=== PATIENT | female | born 1995 | race African-American/Black ===

== ENCOUNTER → 2018-11-13 | Outpatient (CLI) | payer OTHER ==
[2018-11-13 16:56] LABS: BACTERIA (WET MOUNT) 4+ BACTERIA SEEN; EPITHELIALS (WET MOUNT) 4+ EPITHELIALS SEEN; T.VAGINALIS (WET MOUNT) NO TRICHOMONAS SEEN; WBCS (WET MOUNT) RARE WBCS SEEN; YEAST (WET MOUNT) NO YEAST SEEN
[2018-11-13 19:06] LABS: CHLAM PCR DETECTED (NOT DETECT); GON PCR NOT DETECTED (NOT DETECT)
== END ==
LOC: LAB 16:28
PROVIDERS: ATTEND Nurse Practitioner Family
DX: R30.0 Dysuria (principal)
CPT/HCPCS: 87086; 87210; 87491; 87591

== ENCOUNTER 2019-01-03 17:08 | Emergency (ER) | payer OTHER ==
[2019-01-03] MEDS ORDERED: ACETAMINOPHEN 325 MG TABLET PO ONE (17:23)
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
[2019-01-03 18:53] LABS: ABSOLUTE BASOPHILS # (AUTO) 0.1 10^3/uL (0.0-0.2); ABSOLUTE EOSINOPHILS # (AUTO) 0.6 10^3/uL (0.0-0.6); ABSOLUTE LYMPHOCYTES (AUTO) 2.7 10^3/uL (0.5-4.7); ABSOLUTE MONOCYTES (AUTO) 0.3 10^3/uL (0.1-1.4); ABSOLUTE NEUT (AUTO) 4.4 10^3/uL (1.7-8.2); BASOPHILS % (AUTO) 1.1 % (0-2); HEMATOCRIT 39.8 % (36.0-47.0); HEMOGLOBIN 13.4 g/dL (12.0-15.5); LYMPHOCYTES % (AUTO) 33.8 % (13-45); MEAN CORPUSCULAR HEMOGLOBIN 30.6 pg (27.0-33.4); MEAN CORPUSCULAR HGB CONC 33.7 g/dL (32.0-36.0); MEAN CORPUSCULAR VOLUME 91 fl (80-97); MONOCYTES % (AUTO) 3.7 % (3-13); PLATELET COUNT 242 10^3/uL (150-450); RED BLOOD COUNT 4.39 10^6/uL (3.72-5.28); SEGMENTED NEUTROPHILS % (AUTO) 54.4 % (42-78); TOTAL CELLS COUNTED % (AUTO) 100 %; WHITE BLOOD COUNT 8.1 10^3/uL (4.0-10.5)
[2019-01-03 19:09] LABS: ALANINE AMINOTRANSFERASE 25 U/L (9-52); ALBUMIN 4.1 g/dL (3.5-5.0); ALKALINE PHOSPHATASE 76 U/L (38-126); ANION GAP 10 (5-19); ASPARTATE AMINO TRANSFERASE 19 U/L (14-36); BILIRUBIN,DIRECT 0.2 mg/dL (0.0-0.4); BILIRUBIN,TOTAL 0.5 mg/dL (0.2-1.3); BLOOD UREA NITROGEN 15 mg/dL (7-20); CALCIUM 9.8 mg/dL (8.4-10.2); CARBON DIOXIDE 26 mmol/L (22-30); CHLORIDE 107 mmol/L (98-107); GLUCOSE 89 mg/dL (75-110); POTASSIUM 3.7 mmol/L (3.6-5.0); SODIUM 142.7 mmol/L (137-145); TOTAL PROTEIN 7.1 g/dL (6.3-8.2)
[2019-01-03 20:28] VITALS: BP 122/64
--- NOTE | 2019-01-03 23:49 | EKG REPORT ---
SEVERITY:- NORMAL ECG - SINUS RHYTHM : Confirmed by: Lindy Conde MD 03-Jan-2019 23:49:26
== END 2019-01-03 20:28 | disposition home or self-care (01) ==
LOC: ER 17:08
DX: M79.602 Pain in left arm (principal); M89.8X1 Other specified disorders of bone, shoulder; M54.2 Cervicalgia; M79.605 Pain in left leg; V49.40XA Driver injured in collision with unspecified motor vehicles in traffic accident, initial encounter; V47.5XXA Car driver injured in collision with fixed or stationary object in traffic accident, initial encounter; Y93.84 Activity, sleeping; L53.9 Erythematous condition, unspecified
CPT/HCPCS: 36415; 71046; 80053; 85025; 93005; 93010; 99284

== ENCOUNTER 2019-05-06 06:45 | Emergency (ER) | payer BC, OTHER ==
[2019-05-06 08:55] LABS: ABSOLUTE EOSINOPHILS # (AUTO) 0.4 10^3/uL (0.0-0.6); ABSOLUTE MONOCYTES (AUTO) 0.3 10^3/uL (0.1-1.4); ABSOLUTE NEUT (AUTO) 5.8 10^3/uL (1.7-8.2); BASOPHILS % (AUTO) 0.4 % (0-2); EOSINOPHILS % (AUTO) 4.1 % (0-6); HEMATOCRIT 39.1 % (36.0-47.0); HEMOGLOBIN 13.2 g/dL (12.0-15.5); LYMPHOCYTES % (AUTO) 23.8 % (13-45); MEAN CORPUSCULAR HEMOGLOBIN 30.3 pg (27.0-33.4); MEAN CORPUSCULAR HGB CONC 33.8 g/dL (32.0-36.0); MEAN CORPUSCULAR VOLUME 90 fl (80-97); PLATELET COUNT 225 10^3/uL (150-450); RED BLOOD COUNT 4.36 10^6/uL (3.72-5.28); RED CELL DISTRIBUTION WIDTH 12.9 % (11.5-14.0); SEGMENTED NEUTROPHILS % (AUTO) 67.7 % (42-78); TOTAL CELLS COUNTED % (AUTO) 100 %; WHITE BLOOD COUNT 8.6 10^3/uL (4.0-10.5)
[2019-05-06 09:11] LABS: ANION GAP 11 (5-19); BLOOD UREA NITROGEN 10 mg/dL (7-20); CALCIUM 9.6 mg/dL (8.4-10.2); CARBON DIOXIDE 23 mmol/L (22-30); CHLORIDE 106 mmol/L (98-107); GLUCOSE 87 mg/dL (75-110); POTASSIUM 3.8 mmol/L (3.6-5.0)
[2019-05-06 09:43] LABS: APPEARANCE,URINE SLIGHTLY-CLOUDY; BILIRUBIN,URINE NEGATIVE (NEGATIVE); COLOR,URINE YELLOW; GLUCOSE, URINE NEGATIVE (NEGATIVE); KETONES,URINE NEGATIVE (NEGATIVE); LEUKOCYTE ESTERASE,URINE NEGATIVE (NEGATIVE); NITRITE,URINE NEGATIVE (NEGATIVE); PROTEIN,URINE NEGATIVE (NEGATIVE); URINE SPECIFIC GRAVITY 1.023; UROBILINOGEN,URINE NEGATIVE mg/dL (<2.0)
[2019-05-06 10:04] LABS: ADD MANUAL MICROSCOPIC YES
[2019-05-06 10:19] LABS: BACTERIA,URINE 1+ /HPF
[2019-05-06 10:20] LABS: RBC,URINE 0-1 /HPF
--- NOTE | 2019-05-06 10:41 | RADIOLOGY REPORT (SQ) ---
EXAM DESCRIPTION: U/S OB TRANSVAG W/DOPPLER COMPLETED DATE/TIME: 05/06/2019 10:31 am REASON FOR STUDY: + preg/bleeding COMPARISON: None. TECHNIQUE: Transvaginal static and realtime grayscale images acquired of the pelvis. Additional cody cted spectral and color Doppler images recorded. All images stored on PACs. CLINICAL AGE: 4 weeks, 4 days BHCG: Positive qualitative, no quantitative value available LIMITATIONS: None. FINDINGS: UTERUS: No visualized intrauterine . RIGHT ADNEXA: Normal ovary with normal vascular flow. No adnexal free fluid. No adnexal masses. LEFT ADNEXA: Normal ovary with normal vascular flow. Multiple small cysts. No adnexal free fluid. No adnexal masses. FREE FLUID: None. OTHER: No other significant finding. IMPRESSION: No candidate intrauterine identified. Early of unknown location. R ecommend follow-up beta HCG, ectopic precautions, and follow-up ultrasound examination in 7 to 14 day s to ensure continued development and viability. TECHNICAL DOCUMENTATION: JOB ID: [id number] [employer]- All Rights Reserved Reading location - IP/workstation name: [email or web address]
--- NOTE | 2019-05-06 12:52 | ER Document Report ---
ED General - General Chief Complaint: Vaginal Bleeding Stated Complaint: ABDOMINAL PAIN Time Seen by Provider: 05/06/19 08:48 Notes: Patient is a 24-year-old female G2, P1 maximally 4 weeks presents to the emergency department for vaginal bleeding. Patient states last night she started with some light dark red vaginal bleeding. States she went through one pad. States she did have abdominal cramping last evening but that has since stopped. States today she presents to the emergency department for this complaint. Patient's denying any fevers, vaginal discharge, dysuria, abdominal pain or cramping. Past medical history: None Medications: None Allergies: None Last menstrual period 04/05/2019 TRAVEL OUTSIDE OF THE [place] IN LAST 30 DAYS: No - Related Data Allergies/Adverse Reactions: No Known Allergies Allergy (Verified 05/06/19 06:53) Past Medical History - General Information source: Patient - Social History Smoking Status: Never Smoker Chew tobacco use (# tins/day): No Frequency of alcohol use: None Drug Abuse: None Family History: Reviewed & Not Pertinent Patient has suicidal ideation: No Patient has homicidal ideation: No Pulmonary Medical History: Reports: Hx Bronchitis Endocrine Medical History: Denies: Hx Diabetes Mellitus Type 2 Renal/ Medical History: Denies: Hx Ectopic , Hx Ovarian Cysts, Hx Pe ritoneal Dialysis, Hx Pelvic Inflammatory Disease Review of Systems - Review of Systems Constitutional: denies: Fever EENT: No symptoms reported Cardiovascular: No symptoms reported Respiratory: No symptoms reported Gastrointestinal: See HPI Genitourinary: See HPI Female Genitourinary: See HPI Musculoskeletal: No symptoms reported Skin: No symptoms reported Hematologic/Lymphatic: No symptoms reported Neurological/Psychological: No symptoms reported Physical Exam - Vital signs Vitals: Temp Pulse Resp BP Pulse Ox 98.6 F 77 16 130/78 H 100 05/06/19 06:53 05/06/19 06:53 05/06/19 06:53 05/06/19 06:53 05/06/19 06:53 - Notes Notes: GENERAL: Alert, interacts well. No acute distress. HEAD: Normocephalic, atraumatic. EYES: Pupils equal, round, and reactive to light. Extraocular movements intact. ENT: Oral mucosa moist, tongue midline. NECK: Full range of motion. Supple. Trachea midline. LUNGS: Clear to auscultation bilaterally, no wheezes, rales, or rhonchi. No respiratory distress. HEART: Regular rate and rhythm. No murmur ABDOMEN: Soft, non-tender. Non-distended. Bowel sounds present in all 4 quadrants. No pelvic pain noted bilaterally. EXTREMITIES: Moves all 4 extremities spontaneously. No edema, normal radial and dorsalis pedis pulses bilaterally. No cyanosis. BACK: no cervical, thoracic, lumbar midline tenderness. No saddle anesthesia, normal distal neurovascular exam. NEUROLOGICAL: Alert and oriented x3. Normal speech. cranial nerves II through XII grossly intact. PSYCH: Normal affect, normal mood. SKIN: Warm, dry, normal turgor. No rashes or lesions noted. Course - Re-evaluation Re-evalutation: 05/06/19 12:49 I have discussed with patient ultrasound and hCG results. Initially patient was denying any vaginal discharge, besides the scant bleeding that started last evening. Patient now states she was treated for bacterial vaginosis approximately a month ago. States she did not finish her medications and "now that I think about it, it does smell down there." Patient is denying any abdominal pain or cramping at this time. She is denying any pelvic pain, upon reexamination she does not have any pain. I discussed use of a pelvic or doing self swabs. Patient wishes to refuse pelvic at this time. States she will do self swabs. 05/06/19 13:25 Laboratory 05/06/19 05/06/19 05/06/19 08:37 08:37 08:37 WBC 8.6 RBC 4.36 Hgb 13.2 Hct 39.1 MCV 90 MCH 30.3 MCHC 33.8 RDW 12.9 Plt Count 225 Lymph % (Auto) 23.8 [place] % (Auto) 4.0 Eos % (Auto) 4.1 Baso % (Auto) 0.4 Absolute Neuts (auto) 5.8 Absolute Lymphs (auto) 2.0 Absolute Monos (auto) 0.3 Absolute Eos (auto) 0.4 Absolute Basos (auto) 0.0 Seg Neutrophils % 67.7 Sodium 139.9 Potassium 3.8 Chloride 106 Carbon Dioxide 23 Anion Gap 11 BUN 10 Creatinine 0.72 Est GFR ( Amer) > 60 Est GFR (MDRD) Non-Af > 60 Glucose 87 Calcium 9.6 Serum HCG, Qual Beta HCG, Quant Total Beta HCG Urine Color Urine Appearance Urine pH Ur Specific [place] Urine Protein Urine Glucose (UA) Urine Ketones Urine Blood Urine Nitrite Urine Bilirubin Urine Urobilinogen Ur Leukocyte Esterase Urine RBC Urine WBC Ur Squamous Epith Cells Urine Bacteria Urine Mucus Urine Ascorbic Acid Epi Cells (Wet Prep) Bacteria (Wet Prep) Trichomonas (Wet Prep) Vaginal WBC Vaginal Yeast Blood Type B POSITIVE Rhogam Indicated RHOGAM NOT INDICATED 05/06/19 05/06/19 05/06/19 08:37 08:37 09:05 WBC RBC Hgb Hct MCV MCH MCHC RDW Plt Count Lymph % (Auto) [place] % (Auto) Eos % (Auto) Baso % (Auto) Absolute Neuts (auto) Absolute Lymphs (auto) Absolute Monos (auto) Absolute Eos (auto) Absolute Basos (auto) Seg Neutrophils % Sodium Potassium Chloride Carbon Dioxide Anion Gap BUN Creatinine Est GFR ( Amer) Est GFR (MDRD) Non-Af Glucose Calcium Serum HCG, Qual POSITIVE H Beta HCG, Quant 248.20 H Total Beta HCG POSITIVE Urine Color YELLOW Urine Appearance SLIGHTLY-CLOUDY Urine pH 5.0 Ur Specific [place] 1.023 Urine Protein NEGATIVE Urine Glucose (UA) NEGATIVE Urine Ketones NEGATIVE Urine Blood NEGATIVE Urine Nitrite NEGATIVE Urine Bilirubin NEGATIVE Urine Urobilinogen NEGATIVE Ur Leukocyte Esterase NEGATIVE Urine RBC 0-1 Urine WBC 1-5 Ur Squamous Epith Cells FEW Urine Bacteria 1+ Urine Mucus 2+ Urine Ascorbic Acid NEGATIVE Epi Cells (Wet Prep) Bacteria (Wet Prep) Trichomonas (Wet Prep) Vaginal WBC Vaginal Yeast Blood Type Rhogam Indicated 05/06/19 12:51 WBC RBC Hgb Hct MCV MCH MCHC RDW Plt Count Lymph % (Auto) [place] % (Auto) Eos % (Auto) Baso % (Auto) Absolute Neuts (auto) Absolute Lymphs (auto) Absolute Monos (auto) Absolute Eos (auto) Absolute Basos (auto) Seg Neutrophils % Sodium Potassium Chloride Carbon Dioxide Anion Gap BUN Creatinine Est GFR ( Amer) Est GFR (MDRD) Non-Af Glucose Calcium Serum HCG, Qual Beta HCG, Quant Total Beta HCG Urine Color Urine Appearance Urine pH Ur Specific [place] Urine Protein Urine Glucose (UA) Urine Ketones Urine Blood Urine Nitrite Urine Bilirubin Urine Urobilinogen Ur Leukocyte Esterase Urine RBC Urine WBC Ur Squamous Epith Cells Urine Bacteria Urine Mucus Urine Ascorbic Acid Epi Cells (Wet Prep) 3+ EPITHELIALS SEEN Bacteria (Wet Prep) 3+ BACTERIA SEEN Trichomonas (Wet Prep) NO TRICHOMONAS SEEN Vaginal WBC 1+ WBCS SEEN Vaginal Yeast NO YEAST SEEN Blood Type Rhogam Indicated Transvaginal US 05/06/19 08:50 IMPRESSION: No candidate intrauterine identified. Early of unknown location. Recommend follow-up beta HCG, ectopic precautions, and follow-up ultrasound examination in 7 to 14 days to ensure continued development and viability. Patient's beta-hCG was 248, patient's ultrasound shows no IUP. Suggest repeat hCGs and repeat ultrasounds. Patient's wet mount did show signs of bacterial vaginosis, treated prophylactically for gonorrhea and chlamydia. Patient continues without having abdominal pain or cramping in the emergency room. States she has had the same pad in place that she put on this morning and there is no blood that she can see. Discussed with her close follow-up with [facility] or the [facility]. Discussed potential early or threatened miscarriage. At this time will discharge with return precautions and follow-up recommendations. Verbal discharge instructions given a the bedside and opportunity for questions given. Medication warnings reviewed. Patient is in agreement with this plan and has verbalized understanding of return precautions and the need for primary care follow-up in the next 24-72 hours. This medical record was dictated with voice recognizing software. There may be grammatical, syntax errors that are unintended. - Vital Signs Vital signs: Temp Pulse Resp BP Pulse Ox 98.6 F 77 16 130/78 H 100 05/06/19 06:53 05/06/19 06:53 05/06/19 06:53 05/06/19 06:53 05/06/19 06:53 - Laboratory Result Diagrams: 05/06/19 08:37 05/06/19 08:37 Laboratory results interpreted by me: 05/06/19 05/06/19 08:37 08:37 Serum HCG, Qual POSITIVE H Beta HCG, Quant 248.20 H Discharge - Discharge Clinical Impression: Vaginal bleeding affecting early , Bacterial vaginosis in Condition: Stable Disposition: HOME, SELF-CARE Instructions: Vaginal Bleeding ([facility]), Vaginosis, Bacterial ([facility]), Bleeding During Early ([facility]) Additional Instructions: As we discussed you have been seen and treated in the emergency department for bleeding during early . You should have your labs rechecked in 48 hours. Please follow-up with [facility] or the [facility], phone numbers will be provided. You have also tested positive for bacterial vaginosis, take antibiotics as prescribed. You have been prophylactically treated for gonorrhea and chlamydia. Please return to the emergency room should you have excessive vaginal bleeding, feel lightheaded, dizzy, weak, pass out or have any other concerns. Prescriptions: Metronidazole [Flagyl 500 mg Tablet] 500 mg PO BID #14 tablet Referrals: EFREN REBOLLEDO MD [ACTIVE STAFF] - Follow up as needed [facility] - Follow up as needed
[2019-05-06 13:14] LABS: BACTERIA (WET MOUNT) 3+ BACTERIA SEEN; EPITHELIALS (WET MOUNT) 3+ EPITHELIALS SEEN; T.VAGINALIS (WET MOUNT) NO TRICHOMONAS SEEN; WBCS (WET MOUNT) 1+ WBCS SEEN; YEAST (WET MOUNT) NO YEAST SEEN
[2019-05-06] MEDS ORDERED: CEFTRIAXONE INJ 250 MG VIAL IM ONE (13:15)
[2019-05-06] MEDS ORDERED: METRONIDAZOLE 500 MG TABLET PO ONE (13:15)
[2019-05-06] MEDS ORDERED: AZITHROMYCIN 250 MG TABLET PO ONE (13:16)
[2019-05-06 13:42] VITALS: BP 126/74
[2019-05-06 14:37] LABS: CHLAM PCR NOT DETECTED (NOT DETECT)
== END 2019-05-06 13:42 | disposition home or self-care (01) ==
LOC: ER 06:45
DX: O20.9 Hemorrhage in early pregnancy, unspecified (principal); O23.591 Infection of other part of genital tract in pregnancy, first trimester; B96.89 Other specified bacterial agents as the cause of diseases classified elsewhere; Z3A.01 Less than 8 weeks gestation of pregnancy
CPT/HCPCS: 86900; 86901; 36415; 87210; 84702; 84703; 85025; 80048; 81001; 87491; 87591; 76817; 93976; J0696

== ENCOUNTER 2019-06-20 17:14 | Emergency (ER) | payer BC, OTHER ==
--- NOTE | 2019-06-20 17:24 | ER Document Report ---
ED Medical Screen (RME) - General Chief Complaint: Vaginal Bleeding Stated Complaint: VAGINAL BLEEDING Time Seen by Provider: 06/20/19 17:17 Mode of Arrival: Ambulatory Information source: Patient Notes: Patient states that she was about 8 weeks and had an performed on 05/29/19. Patient states she is only followed up with the doctor via phone. Patient states she has had increased pain, vaginal bleeding with clots. Patient states she did take a home test that was positive today. Patient states that she has been sexually active since having the although states that it could not have gotten her and is vague regarding whether or not she has been sexually active. Patient's blood type is B+ from review of previous records. I have greeted and performed a rapid initial assessment of this patient. A comprehensive ED assessment and evaluation of the patient, analysis of test results and completion of the medical decision making process will be conducted by additional ED providers. TRAVEL OUTSIDE OF THE [place] IN LAST 30 DAYS: No - Related Data Allergies/Adverse Reactions: No Known Allergies Allergy (Verified 06/20/19 17:17) Past Medical History Pulmonary Medical History: Reports: Hx Bronchitis Endocrine Medical History: Denies: Hx Diabetes Mellitus Type 2 Renal/ Medical History: Denies: Hx Ectopic , Hx Ovarian Cysts, Hx Peritoneal Dialysis, Hx Pelvic Inflammatory Disease Physical Exam - General General appearance: Appears well, Alert In distress: None
[2019-06-20 17:47] LABS: ABSOLUTE EOSINOPHILS # (AUTO) 0.6 10^3/uL (0.0-0.6); ABSOLUTE LYMPHOCYTES (AUTO) 2.3 10^3/uL (0.5-4.7); ABSOLUTE MONOCYTES (AUTO) 0.3 10^3/uL (0.1-1.4); ABSOLUTE NEUT (AUTO) 4.7 10^3/uL (1.7-8.2); BASOPHILS % (AUTO) 0.6 % (0-2); EOSINOPHILS % (AUTO) 7.3 % (0-6); HEMATOCRIT 35.6 % (36.0-47.0); HEMOGLOBIN 12.1 g/dL (12.0-15.5); LYMPHOCYTES % (AUTO) 29.2 % (13-45); MEAN CORPUSCULAR HEMOGLOBIN 30.4 pg (27.0-33.4); MEAN CORPUSCULAR VOLUME 90 fl (80-97); MONOCYTES % (AUTO) 4.1 % (3-13); PLATELET COUNT 285 10^3/uL (150-450); RED BLOOD COUNT 3.98 10^6/uL (3.72-5.28); RED CELL DISTRIBUTION WIDTH 12.7 % (11.5-14.0); SEGMENTED NEUTROPHILS % (AUTO) 58.8 % (42-78); TOTAL CELLS COUNTED % (AUTO) 100 %
--- NOTE | 2019-06-20 18:43 | ER Document Report ---
ED GI/ - General Chief Complaint: Vaginal Bleeding Stated Complaint: VAGINAL BLEEDING Time Seen by Provider: 06/20/19 17:17 Mode of Arrival: Ambulatory Information source: Patient Notes: HPI: Patient is a 24-year-old female who had a Cytotec assisted miscarriage on 29 May. She states that the bleeding subsided until about a week ago. She states she has been passing small clots with some intermittent cramping. She denies any fevers, vomiting, lightheadedness or dizziness, or dysuria. Patient was concerned because she took a home test that was "positive". She is still sexually active. ROS: See HPI All other review of systems reviewed and otherwise negative Reviewed vital signs and nursing note as charted by RN. PHYSICAL EXAM: CONSTITUTIONAL: Alert and oriented and responds appropriately to questions. Well-appearing; well-nourished HEAD: Normocephalic; atraumatic CARD: Regular rate and rhythm; no murmurs; symmetric distal pulses RESP: Normal chest excursion without splinting or tachypnea; breath sounds clear and equal bilaterally ABD/GI: Normal bowel sounds; non-distended; soft, non-tender to palpation of all four quadrants of the abdomen. No palpable fundus. 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 I do not see any obvious external lesions. Very minimal blood in the vaginal vault. Cervical os is closed with no CMT or adnexal masses or tenderness BACK: The back appears normal and is non-tender to palpation EXT: Normal ROM in all joints; non-tender to palpation; no edema SKIN: No acute lesions noted NEURO: CN 2-12 intact; 5/5 bilateral upper and lower extremity strength with sensation intact to light touch PSYCH: The patient's mood and manner are appropriate. Grooming and personal hygiene are appropriate. TRAVEL OUTSIDE OF THE [place] IN LAST 30 DAYS: No - Related Data Allergies/Adverse Reactions: No Known Allergies Allergy (Verified 06/20/19 17:17) Past Medical History - General Information source: Patient - Social History Smoking Status: Never Smoker Family History: Reviewed & Not Pertinent Patient has suicidal ideation: No Patient has homicidal ideation: No Pulmonary Medical History: Reports: Hx Bronchitis Endocrine Medical History: Denies: Hx Diabetes Mellitus Type 2 Renal/ Medical History: Denies: Hx Ectopic , Hx Ovarian Cysts, Hx Peritoneal Dialysis, Hx Pelvic Inflammatory Disease Physical Exam - Vital signs Vitals: Temp Pulse Resp BP Pulse Ox 98.0 F 72 16 115/79 100 06/20/19 17:22 06/20/19 17:22 06/20/19 17:22 06/20/19 17:22 06/20/19 17:22 Course - Re-evaluation Re-evalutation: Given the history and physical we will obtain a hemoglobin level, repeat quantitative hCG, transvaginal ultrasound, pelvic exam, and reassess. Vital signs are stable. 06/20/19 18:42 Exam as recorded. Patient tells me she was mostly concerned about the positive test. I do believe this could have been falling quantitative hCGs especially given the level today. Transvaginal ultrasound is pending. 06/20/19 18:44 Patient had a quantitative hCG of 248 on May 13 of this year. Again the Cytotec induced miscarriage/evacuation of products was on the 29 of May. 06/20/19 18:57 Ultrasound as recorded. I called and spoke directly to the radiologist. I also called and spoke directly to the PEN RULER OPERATOR. She would be admitted for further evaluation and possibly a D&C. - Vital Signs Vital signs: Temp Pulse Resp BP Pulse Ox 98.0 F 72 16 115/79 100 06/20/19 17:22 06/20/19 17:22 06/20/19 17:22 06/20/19 17:22 06/20/19 17:22 - Laboratory Result Diagrams: 06/20/19 17:34 Laboratory results interpreted by me: 06/20/19 06/20/19 17:34 17:34 Hct 35.6 L Eos % (Auto) 7.3 H Beta HCG, Quant 1786.10 H Discharge - Discharge Clinical Impression: Retained products of conception Condition: Fair Disposition: ADMITTED OBSERVATION Admitting Provider: [facility] Unit Admitted: Labor and Delivery
[2019-06-20 18:53] LABS: BACTERIA (WET MOUNT) 3+ BACTERIA SEEN; RBCS (WET MOUNT) 3+ RBCS SEEN; T.VAGINALIS (WET MOUNT) NO TRICHOMONAS SEEN; WBCS (WET MOUNT) 2+ WBCS SEEN; YEAST (WET MOUNT) NO YEAST SEEN
--- NOTE | 2019-06-20 19:20 | RADIOLOGY REPORT (SQ) ---
EXAM DESCRIPTION: U/S OB TRANSVAGINAL W/O DOP COMPLETED DATE/TIME: 06/20/2019 6:05 pm REASON FOR STUDY: 05/29, vag bleed, pain,+preg test per pt COMPARISON: None. TECHNIQUE: Dynamic and static grayscale images acquired of the pelvis via transvaginal approach and recorded on PACS. Additional selected color Doppler and spectral images recorded. LIMITATIONS: None. FINDINGS: UTERUS: The uterus measures 9.6 by 4.6 x 4.5 cm. ENDOMETRIAL STRIPE: The endometrium measures 14 mm in thickness with heterogeneous echoes. These shyanne nges could be secondary to retained products of conception. CERVIX: The cervix measures 2.7 cm in length. RIGHT OVARY AND DOPPLER: The right ovary measures 1.7 x 2.3 x 5.2 cm demonstrating Doppler flow LEFT OVARY AND DOPPLER: The left ovary measures 2.5 x 2.3 x 1.8 cm demonstrating Doppler flow. IMPRESSION: There is evidence of complex echoes within the endometrial canal which could represent c hanges of retained products of conception. Dyer Assistant consultation recommended. COMMENT: The case was discussed with the nurse practitioner Avel. TECHNICAL DOCUMENTATION: JOB ID: [id number] [id number] [employer]- All Rights Reserved Rev-01/09 Reading location - IP/workstation name: [email or web address]
--- NOTE | 2019-06-20 20:12 | PDOC CONSULTATION ---
Consultation Consult Date: 06/20/19 Attending physician:: NALDO AWAD Provider Consulted: RAMA SIEGEL Consult reason:: 1. Incomplete at 6 weeks (retained products of conception). 2. Rh+ History of Present Illness Admission Date/PCP: 06/20/19 19:07 Patient complains of: I have been bleeding for almost 22 days after I had a medical History of Present Illness: JENNIFER PARISH is a 24 year old 2P1 presented to the emergency department because she has been bleeding for approximately 22 days. Patient had a positive test on May 13 at the emergency department. Her LMP is April 05. She stated that she felt sick, therefore she went to the emergency department. Her quantitative beta-hCG was 200. She then decided to undergo an elective on May 29, in [place]. She was given Cytotec. She stated that she had heavy bleeding for 7 days. Two days later, the bleeding restarted. 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 Today, she states that she is bleeding very lightly, but she wanted to make sure that everything was alright, therefore she came to the ED tonight. Her quantitative beta-hCG today is 1786. She subsequently underwent a pelvic ultrasound which showed products of conception in the fundal region. Past Medical History 1 Baby 1 Year: 2,016 Delivery: Spontaneous Vaginal Delivery Pulmonary Medical History: Reports: Bronchitis Endocrine Medical History: Denies: Diabetes Mellitus Type 2 Social History Lives with: Family Smoking Status: Never Smoker Frequency of Alcohol Use: Rare Hx Recreational Drug Use: No Family History Family History: Reviewed & Not Pertinent Parental Family History Reviewed: No - N/A Children Family History Reviewed: No Sibling(s) Family History Reviewed.: No Medication/Allergy Home Medications: Fluconazole [Diflucan] 150 mg PO ONCE #4 tablet 07/18/15 Ondansetron [Zofran Odt] 8 mg PO Q8HP PRN #10 tab.rapdis 07/18/15 Metronidazole [Flagyl 500 mg Tablet] 500 mg PO Q6H #28 tablet 10/29/15 Nitrofurantoin/Nitrofuran Mac [Macrobid 100 mg Capsule] 1 tab PO BID #20 capsule 10/29/15 Pnv95/Iron Fum/Folic Acid [ Caplet] 1 each PO DAILY #30 tablet 10/29/15 Metronidazole [Flagyl 500 mg Tablet] 500 mg PO BID #14 tablet 05/06/19 Allergies/Adverse Reactions: No Known Allergies Allergy (Verified 06/20/19 17:17) Review of Systems Constitutional: PRESENT: as per HPI. ABSENT: anorexia, chills, fatigue, f ever(s), headache(s), night sweats, weakness, weight gain, weight loss, other Cardiovascular: ABSENT: as per HPI, chest pain, dyspnea on exertion, edema, orthropnea, palpitations, other Respiratory: ABSENT: as per HPI, cough, dyspnea, hemoptysis, sputum, other Physical Exam - Physical Exam Vital Signs: Temp Pulse Resp BP Pulse Ox 98.0 F 72 16 115/79 100 06/20/19 17:22 06/20/19 17:22 06/20/19 17:22 06/20/19 17:22 06/20/19 17:22 Intake & Output 06/19/19 06/20/19 06/21/19 06:59 06:59 06:59 Weight 88.5 kg General appearance: PRESENT: no acute distress Respiratory exam: PRESENT: clear to auscultation yobany Cardiovascular exam: PRESENT: RRR GI/Abdominal exam: PRESENT: normal bowel sounds, soft Extremities exam: ABSENT: calf tenderness, clubbing, full ROM, joint swelling, pedal edema, tenderness, +1 edema, +2 edema, other - Gynecological Exam Vagina: normal, other - light bleeding Result Laboratory Results: 06/20/19 17:34 06/20/19 17:34 WBC 8.0 RBC 3.98 Hgb 12.1 Hct 35.6 L MCV 90 MCH 30.4 MCHC 34.0 RDW 12.7 Plt Count 285 Seg Neutrophils % 58.8 Impressions: Obstetrics Ultrasound 06/20/19 17:20 IMPRESSION: There is evidence of complex echoes within the endometrial canal which could represent changes of retained products of conception. Box Finisher consul tation recommended. Assessment & Plan - Diagnosis (1) Retained products of conception Is this a current diagnosis for this admission?: Yes (2) Incomplete Is this a current diagnosis for this admission?: Yes (3) Blood type, Rh positive Is this a current diagnosis for this admission?: Yes - Time Time Spent: 30 to 50 Minutes Critical Time spent with patient: 15-24 minutes Anticipated discharge: Home Within: within 24 hours - Plan Summary Plan Summary: 1. Discharge home 2. Follow-up at [facility] on Friday to schedule a suction D&C for Friday or Friday 3. Bleeding precautions given. Patient instructed not to eat or drink if she feels that she is bleeding heavily and may go to the emergency department
[2019-06-20 20:19] LABS: CHLAM PCR NOT DETECTED (NOT DETECT)
[2019-06-20 20:20] VITALS: BP 138/75
== END 2019-06-20 20:22 | disposition home or self-care (01) ==
LOC: ER 17:14 → EH 19:07 → UNDOADMOB 19:07 → ER 20:22
DX: O03.4 Incomplete spontaneous abortion without complication (principal)
CPT/HCPCS: 36415; 76817; 84702; 85025; 87210; 87491; 87591; 99284

== ENCOUNTER 2019-06-21 12:25 | Emergency (ER) | payer BC, OTHER ==
--- NOTE | 2019-06-21 12:48 | ER Document Report ---
ED Medical Screen (RME) - General Stated Complaint: ABDOMINAL PAIN/POST Time Seen by Provider: 06/21/19 12:39 Mode of Arrival: Ambulatory Information source: Patient Notes: Patient presents stating that she was supposed to state yesterday and have a D&C but because she did not have childcare she had to go home. Patient had an elective on 05/29/2019 with Cytotec. Patient had an ultrasound yesterday that showed retained products of conception. Patient complains of continued bleeding off and on although states that the pain is still severe. I have greeted and performed a rapid initial assessment of this patient. A comprehensive ED assessment and evaluation of the patient, analysis of test results and completion of the medical decision making process will be conducted by additional ED providers. TRAVEL OUTSIDE OF THE [place] IN LAST 30 DAYS: No - Related Data Allergies/Adverse Reactions: No Known Allergies Allergy (Verified 06/20/19 17:17) Past Medical History Pulmonary Medical History: Reports: Hx Bronchitis Endocrine Medical History: Denies: Hx Diabetes Mellitus Type 2 Renal/ Medical History: Denies: Hx Ectopic , Hx Ovarian Cysts, Hx Peritoneal Dialysis, Hx Pelvic Inflammatory Disease Physical Exam - Vital signs Vitals: Temp Pulse BP Pulse Ox 98.3 F 73 114/72 100 06/21/19 12:34 06/21/19 12:34 06/21/19 12:34 06/21/19 12:34 - Abdominal Tenderness: Tender - Lower pelvic Course - Vital Signs Vital signs: Temp Pulse Resp BP Pulse Ox 98.3 F 73 114/72 100 06/21/19 12:34 06/21/19 12:34 06/21/19 12:34 06/21/19 12:34
[2019-06-21 13:27] LABS: ABSOLUTE EOSINOPHILS # (AUTO) 0.5 10^3/uL (0.0-0.6); ABSOLUTE LYMPHOCYTES (AUTO) 2.7 10^3/uL (0.5-4.7); ABSOLUTE MONOCYTES (AUTO) 0.4 10^3/uL (0.1-1.4); ABSOLUTE NEUT (AUTO) 4.8 10^3/uL (1.7-8.2); BASOPHILS % (AUTO) 0.5 % (0-2); EOSINOPHILS % (AUTO) 6.3 % (0-6); HEMATOCRIT 36.4 % (36.0-47.0); HEMOGLOBIN 12.3 g/dL (12.0-15.5); LYMPHOCYTES % (AUTO) 31.9 % (13-45); MEAN CORPUSCULAR HEMOGLOBIN 30.2 pg (27.0-33.4); MEAN CORPUSCULAR HGB CONC 33.8 g/dL (32.0-36.0); MEAN CORPUSCULAR VOLUME 89 fl (80-97); MONOCYTES % (AUTO) 4.6 % (3-13); PLATELET COUNT 279 10^3/uL (150-450); RED BLOOD COUNT 4.07 10^6/uL (3.72-5.28); RED CELL DISTRIBUTION WIDTH 12.8 % (11.5-14.0); SEGMENTED NEUTROPHILS % (AUTO) 56.7 % (42-78); TOTAL CELLS COUNTED % (AUTO) 100 %; WHITE BLOOD COUNT 8.4 10^3/uL (4.0-10.5)
[2019-06-21 13:56] LABS: ANION GAP 9 (5-19); BLOOD UREA NITROGEN 14 mg/dL (7-20); CALCIUM 9.7 mg/dL (8.4-10.2); CARBON DIOXIDE 25 mmol/L (22-30); CHLORIDE 106 mmol/L (98-107); GLUCOSE 78 mg/dL (75-110); POTASSIUM 3.9 mmol/L (3.6-5.0)
[2019-06-21 18:29] VITALS: BP 122/73
--- NOTE | 2019-06-21 18:36 | ER Document Report ---
ED General - General Chief Complaint: Vaginal Bleeding Stated Complaint: ABDOMINAL PAIN/POST Time Seen by Provider: 06/21/19 12:39 Mode of Arrival: Ambulatory TRAVEL OUTSIDE OF THE [place] IN LAST 30 DAYS: No - Related Data Allergies/Adverse Reactions: No Known Allergies Allergy (Verified 06/20/19 17:17) Past Medical History - General Information source: Patient Last Menstrual Period: 04/05/19 - Social History Smoking Status: Never Smoker Chew tobacco use (# tins/day): No Frequency of alcohol use: None Drug Abuse: None Family History: Reviewed & Not Pertinent Patient has suicidal ideation: No Patient has homicidal ideation: No Pulmonary Medical History: Reports: Hx Bronchitis Endocrine Medical History: Denies: Hx Diabetes Mellitus Type 2 Renal/ Medical History: Denies: Hx Ectopic , Hx Ovarian Cysts, Hx Peritoneal Dialysis, Hx Pelvic Inflammatory Disease Past Surgical History: Reports: Hx Abdominal Surgery - hernia Physical Exam - Vital signs Vitals: Temp Pulse BP Pulse Ox 98.3 F 73 114/72 100 06/21/19 12:34 06/21/19 12:34 06/21/19 12:34 06/21/19 12:34 - Notes Notes: Patient complaining lower abdominal pain for several weeks. Pain is crampy in nature and no different than before it is decreased. She is denying chest pain shortness of breath dizziness fevers nausea vomiting that she had an elective beginning a month with Cytotec bleeding recent ultrasound showed return products of conception. She was seen here last night and plans to do a D&C however patient had to leave to fall take care of family members today if she has more pain Past medical history meds and allergies are negative. Social history does not smoke Review of systems all systems were reviewed and acutely negative except as in HPI PHYSICAL EXAMINATION: Signs noted transient reviewed GENERAL: Well-appearing, well-nourished and in no acute distress. HEAD: Atraumatic, normocephalic. EYES: Pupils equal round and reactive to light, extraocular movements intact, sclera anicteric, conjunctiva are normal. ENT: nares patent, oropharynx clear without exudates. Moist mucous membranes. NECK: Normal range of motion, supple without lymphadenopathy LUNGS: Breath sounds clear to auscultation bilaterally and equal. No wheezes rales or rhonchi. HEART: Regular rate and rhythm without murmurs ABDOMEN: Soft, nontender EXTREMITIES: Normal range of motion, no pitting or edema. No cyanosis. NEUROLOGICAL: No focal neurological deficits. Moves all extremities spontaneously and on command. PSYCH: Normal mood, normal affect. SKIN: Warm, Dry, normal turgor, no rashes or lesions noted. Course - Re-evaluation Re-evalutation: 06/21/19 18:35 He reviewed her chart from yesterday. Discussed case with MOTORMAN/WOMAN discharge home follow-up in the office tomorrow Medical decision making patient presents with persistent vaginal bleeding from an incomplete AB likely stable looks well to be discharged home. Vicodin she is 1 about side effects medication - Vital Signs Vital signs: Temp Pulse Resp BP Pulse Ox 98.4 F 134 H 22 H 122/73 100 06/21/19 18:04 06/21/19 18:04 06/21/19 18:04 06/21/19 18:04 06/21/19 18:04 - Laboratory Result Diagrams: 06/21/19 13:12 06/21/19 13:12 Laboratory results interpreted by me: 06/21/19 13:12 Eos % (Auto) 6.3 H Discharge - Discharge Clinical Impression: Incomplete Disposition: HOME, SELF-CARE Instructions: Vaginal Bleeding ([facility]) Additional Instructions: Rest. Return if you develop heavy vaginal bleeding with clots or fever The pain medicines may cause drowsiness. Do not take, with Tylenol Follow-up with Dr. Centeno tomorrow you do not need an appointment Prescriptions: Hydrocodone/Acetaminophen [[place] 5-325 mg Tablet] 1 tab PO Q6 #12 tablet Referrals: AUBREY RUVALCABA MD [ACTIVE STAFF] - Follow up tomorrow
== END 2019-06-21 18:56 | disposition home or self-care (01) ==
LOC: ER 12:25
DX: O07.1 Delayed or excessive hemorrhage following failed attempted termination of pregnancy (principal); R10.30 Lower abdominal pain, unspecified
CPT/HCPCS: 36415; 80048; 85025; 99284

== ENCOUNTER 2019-06-24 09:06 | Day surgery (SDC) | payer BC, OTHER ==
[~2019-06-24 09:06] MED LIST: LACTATED RINGERS 1000 ML IV PRN; LIDOCAINE 0.5% INJ-PF (5 MG/ML) 50 ML SDV SUBCUT PRN
[2019-06-24] MEDS ORDERED: DOXYCYCLINE HYCLATE 100 MG in DEXTROSE 5%-WATER 250 ML IV PRN (09:31)
[2019-06-24 10:07] LABS: HEMATOCRIT 38.9 % (36.0-47.0); HEMOGLOBIN 13.4 g/dL (12.0-15.5); MEAN CORPUSCULAR HEMOGLOBIN 30.9 pg (27.0-33.4); MEAN CORPUSCULAR HGB CONC 34.6 g/dL (32.0-36.0); MEAN CORPUSCULAR VOLUME 89 fl (80-97); PLATELET COUNT 270 10^3/uL (150-450); RED BLOOD COUNT 4.36 10^6/uL (3.72-5.28); RED CELL DISTRIBUTION WIDTH 12.6 % (11.5-14.0); WHITE BLOOD COUNT 7.3 10^3/uL (4.0-10.5)
[2019-06-24 10:11] LABS: APPEARANCE,URINE CLEAR; BILIRUBIN,URINE NEGATIVE (NEGATIVE); COLOR,URINE YELLOW; GLUCOSE, URINE NEGATIVE (NEGATIVE); KETONES,URINE NEGATIVE (NEGATIVE); LEUKOCYTE ESTERASE,URINE NEGATIVE (NEGATIVE); NITRITE,URINE NEGATIVE (NEGATIVE); PROTEIN,URINE NEGATIVE (NEGATIVE); URINE SPECIFIC GRAVITY 1.019; UROBILINOGEN,URINE NEGATIVE mg/dL (<2.0)
[2019-06-24] MEDS ORDERED: FENTANYL CITRATE INJ/PF 100 MCG/2 ML AMPUL ONE (10:50)
[2019-06-24] MEDS ORDERED: MIDAZOLAM 2 MG/2 ML INJ ONE (10:51)
[2019-06-24] MEDS ORDERED: PROPOFOL INJ 200 MG/20 ML VIAL IV ONE (10:51)
[2019-06-24] MEDS ORDERED: DIPHENHYDRAMINE HCL 50 MG/ML VIAL IV PRN (11:37)
[2019-06-24] MEDS ORDERED: MORPHINE SULFATE 10 MG/ML INJ IV PRN (11:37)
[2019-06-24] MEDS ORDERED: MEPERIDINE HCL/PF INJ 25 MG/1 ML DISP.SYRIN IV PRN (11:37)
[2019-06-24] MEDS ORDERED: PROMETHAZINE HCL INJ 25 MG/1 ML VIAL IV PRN (11:37)
[2019-06-24] MEDS ORDERED: FENTANYL CITRATE INJ/PF 100 MCG/2 ML AMPUL IV PRN ×3 (11:37)
--- NOTE | 2019-06-24 11:45 | Operative Report ---
Operative Report DATE OF SURGERY: 06/24/19 PREOPERATIVE DIAGNOSIS: Incomplete AB POSTOPERATIVE DIAGNOSIS: Same OPERATION: Suction D&C SURGEON: EFREN REBOLLEDO ANESTHESIA: LMAC TISSUE REMOVED OR ALTERED: POC COMPLICATIONS: None none ESTIMATED BLOOD LOSS: Less than 10 cc PROCEDURE: The patient was taken to the Operating Room where general anesthesia was obtained without difficulty. She was prepped and draped in the normal sterile fashion in the dorsal lithotomy position. Exam under anesthesia was performed and noted above. A speculum was placed in the vagina. The anterior cervix was grasped with a single-tooth tenaculum and the uterus sounded to [] after paracervical block was performed with 8 mL of 1% lidocaine with epinephrine. The cervix was noted to be closed at the beginning of the procedure. Sequential dilators were then used to dilate the cervix to accommodate the the 8 mm suction curet curved. The 8 mm curved suction curet was gently advanced in the usual fashion and good return of tissue. The suction device was then activated and the curet rotated to clear the uterus of the products of conception. A sharp curettage was then performed. The suction device was then gently reintroduced and activated and the curet rotated to clear the uterus of conception which was loosened with recent sharp curettage. The sharp curettage was then performed again until a gritty texture was noted and the cavity was felt to be empty of further tissue. At this time there was minimal bleeding noted from the cervix. All instruments were removed from the patient's cervix and vagina. Silver nitrate was applied to the tenaculum site for hemostasis. Sponge lap needle and instrument counts are correct 2. . The patient tolerated the procedure well and was taken to the recovery area awake and in stable condition. The patient was discharged home with pain medications as well as by mouth Methergine.
[2019-06-24] MEDS ORDERED: ONDANSETRON HCL 8 MG TABLET PO PRN (12:04)
[2019-06-24] MEDS ORDERED: IBUPROFEN 800 MG TABLET ONE (12:55)
[2019-06-24] MEDS ORDERED: IBUPROFEN 800 MG TABLET PO SCH (14:00)
[2019-06-24 15:17] VITALS: BP 120/76
== END 2019-06-24 13:45 | disposition home or self-care (01) ==
LOC: OROUT 09:06
PROVIDERS: ATTEND Obstetrics & Gynecology Gynecology
DX: O03.4 Incomplete spontaneous abortion without complication (principal); Z67.20 Type B blood, Rh positive
CPT/HCPCS: 36415; 85027; 81001; 59812; J2250; J3490; J3010; J7060; J2704; 1965